=== PATIENT | male | born 1970 | race African-American/Black ===

== ENCOUNTER 2021-07-27 17:49 | Emergency (ER) | payer SELFPAY ==
[~2021-07-27] VITALS: Ht 190.5 cm; Wt 136.0 kg
[2021-07-27] MEDS ORDERED: IBUPROFEN 600MG TABLET PO ONE (19:15)
[2021-07-27 19:26] VITALS: BP 157/88
== END 2021-07-27 19:34 | disposition home or self-care (01) ==
LOC: ER 17:49
DX: U07.1 COVID-19 (principal); J06.9 Acute upper respiratory infection, unspecified
CPT/HCPCS: 99283; C9803; U0003; U0005

== ENCOUNTER 2021-08-09 20:22 | Emergency (ER) | payer SELFPAY ==
[~2021-08-09] VITALS: Ht 190.5 cm; Wt 136.4 kg
[2021-08-09 20:50] VITALS: BP 128/79
== END 2021-08-09 23:04 | disposition left against medical advice (07) ==
LOC: ER 20:22
DX: Z53.21 Procedure and treatment not carried out due to patient leaving prior to being seen by health care provider (principal)

== ENCOUNTER 2021-08-11 19:10 | Emergency (ER) | payer BC ==
[~2021-08-11] VITALS: Ht 190.5 cm; Wt 136.0 kg
[2021-08-11 21:00] VITALS: BP 132/96
== END 2021-08-11 22:48 | disposition home or self-care (01) ==
LOC: ER 19:10
DX: Z20.822 Contact with and (suspected) exposure to COVID-19 (principal); Z86.16 Personal history of COVID-19; Z59.00 Homelessness unspecified
CPT/HCPCS: 87426; 99283

== ENCOUNTER 2022-05-05 08:09 | Emergency (ER) | payer BC ==
[~2022-05-05] VITALS: Ht 188 cm; Wt 133.0 kg
[2022-05-05] MEDS ORDERED: KETOROLAC 30MG/ML VIAL IV STA (08:23)
[2022-05-05] MEDS ORDERED: SODIUM CHLORIDE 0.9% 1,000 ML IV ONE (08:30)
[2022-05-05 08:56] VITALS: BP 146/86
[2022-05-05] MEDS ORDERED: CEFTRIAXONE 1 G PREMIX 50 ML IV ONE (09:00)
[2022-05-05 09:01] LABS: CHLORIDE 101 mEq/L (98-107)
[2022-05-05 09:02] LABS: BASOPHILS % 0.5 % (0.0-2.0); EOSINOPHILS % 1.3 % (0.0-5.0); HEMATOCRIT. 44.3 % (42.0-52.0); HEMOGLOBIN. 15.3 g/dL (14.0-18.0); LYMPHOCYTES % 20.9 % (20.0-50.0); MEAN CORPUSCULAR HEMOGLOBIN 33.3 pg (28.0-32.0); MEAN CORPUSCULAR VOLUME 96.2 fL (80.0-94.0); MONOCYTES % 5.8 % (2.0-8.0); NEUTROPHILS % 71.5 % (40.0-76.0); RED CELL DISTRIBUTION WIDTH 13.1 % (11.6-14.6)
[2022-05-05 09:43] LABS: PROTHROMBIN TIME 11.2 sec (9.6-11.0)
[2022-05-05 09:58] LABS: MEAN PLATELET VOLUME 7.8 fl (7.4-10.4); PLATELET 232 x1000/uL (130-400)
[2022-05-05] MEDS ORDERED: IOHEXOL-300 100 ML BOTTLE ONE (12:51)
[2022-05-05] MEDS ORDERED: AMOX1TAB16 MT (13:17)
== END 2022-05-05 13:37 | disposition home or self-care (01) ==
LOC: ER 08:09
DX: K11.20 Sialoadenitis, unspecified (principal); D11.0 Benign neoplasm of parotid gland; I82.C11 Acute embolism and thrombosis of right internal jugular vein; Z20.822 Contact with and (suspected) exposure to COVID-19; I10 Essential (primary) hypertension
CPT/HCPCS: 36415; 70487; 80053; 85025; 85610; 86850; 86900; 86901; 87426; 96365; 96375; 99285; C9803; J0696; J1885; J7030; Q9967